=== PATIENT | female | born 1965 | race Caucasian/White ===

== ENCOUNTER → 2021-01-29 | Outpatient (CLI) | payer OTHER ==
--- NOTE | 2021-02-12 14:44 | SLEEP ---
[address] [address] SLEEP STUDY REPORT Name: DARSHAN ARMENDARIZ Room: [facility]#: [id number] Admission: 01/29/21 Attend Phys: Caleb Porter MD Discharge: Date of : 63 Report #: [id number] THIS REPORT FOR: cc: Marlo Lemon Herbert E. DO Pervez, Adeel MD ~ This study has been reviewed in its entirety by a board certified sleep specialist DATE OF SERVICE: 01/29/2021 SLEEP STUDY INDICATION FOR SLEEP STUDY: Hypersomnia/daytime sleepiness. INTERPRETATION: Total duration of the study is 463 minutes, out of which she was asleep for 276 minutes with an overall sleep efficiency decreased to 59.6%. Sleep onset was delayed occurring around 1-1/2 hours after lying down in bed. N1 sleep duration was 3.3%, N2 duration was 60%, N3 duration was 34%, and REM duration was 13%. We recorded 12 central apneas, 82 hypopneas in addition to 3 obstructive apneas, also recorded 74 respiratory effort related arousals. Overall, apnea-hypopnea index is markedly elevated to 21.1. Events are somewhat more common in REM sleep with a REM apnea-hypopnea index of 21.1. Body position data indicates the patient was observed asleep in the supine position for 168 minutes. Supine apnea-hypopnea index is higher at 26.9. On the left side, the patient's apnea-hypopnea index was 12.2. Mean heart rate was 59. Periodic limb movement index is elevated to 33.5. The periodic limb movement index with arousals being 15.4. Overall, arousal index is elevated to 64. We did record multiple desaturations. Overall, the patient spent 6.4 minutes below an O2 saturation of 90%, out of which 1.2 minutes were spent with an O2 saturation less than 88%. IMPRESSION: Central sleep apnea is observed with an apnea-hypopnea index of 21.1. A majority of the events that is more than 50% are of central origin. There is also mild nocturnal hypoxemia as described above and events are more common when the patient is lying supine. Periodic limb movement disorder is observed with a periodic limb movement index of 33.5. Periodic limb movement index with arousals of 15.4. RECOMMENDATIONS: 1. Recommend proceeding to a repeat sleep study [place] [address] SLEEP STUDY REPORT Name: DARSHAN ARMENDARIZ Room: [facility]#: [id number] Admission: 01/29/21 Attend Phys: Caleb Porter MD Discharge: Date of : 63 Report #: [id number] therapy is contraindicated as the patient has central sleep apnea. In case the patient is not adequately controlled with adequate BiPAP therapy, then in that case, I would consider a BiPAP AutoSV advanced. 2. Recommend weight loss. 3. Recommend avoiding driving or other activities requiring vigilance if drowsy. This entire sleep study was reviewed by board certified sleep physician. <ELECTRONICALLY SIGNED> By: Caleb Porter MD 02/12/21 1444 [id number] Porter MD /nt
== END ==
LOC: M.SLEEPLAB 20:00
PROVIDERS: ATTEND Internal Medicine Critical Care Medicine
DX: G47.33 Obstructive sleep apnea (adult) (pediatric) (principal); G47.10 Hypersomnia, unspecified

== ENCOUNTER → 2021-02-19 | Outpatient (CLI) | payer OTHER ==
--- NOTE | 2021-02-19 16:49 | 2DMMODE ---
[place] [address] 2 D/M-MODE ECHOCARDIOGRAM Name: DARSHAN ARMENDARIZ Room: [facility]#: [id number] Admission: 02/19/21 Attend Phys: Caleb Porter MD Discharge: Date of : 63 Date of Service: 02/19/21 1649 Report #: [id number] THIS REPORT FOR: cc: Marlo Lemon Herbert E. DO Liston, Michael J. MD [facility] ~ APPROVED REPORT Study performed: 02/19/2021 11:26:59 EXAM: Comprehensive 2D, Doppler, and color-flow Echocardiogram Patient Location: Out-Patient BSA: 1.76 HR: 64 bpm BP: 140/80 mmHg Other Information Study Quality: Good Indications Dyspnea 2D Dimensions IVSd: 9.90 (7-11mm) LVOT Diam: 20.02 (18-24mm) LVDd: 42.75 mm PWd: 9.38 (7-11mm) Ascending Ao: 28.03 (22-36mm) LVDs: 22.33 (25-40mm) Aortic Root: 27.20 mm Volumes Left Atrial Volume (Systole) LA ESV Index: 13.30 mL/m2 Aortic Valve AoV Peak Jin.: 1.49 m/s AO Peak Gr.: 8.89 mmHg LVOT Max P.67 mmHg AO Mean Gr.: 4.68 mmHg LVOT Mean P.76 mmHg LVOT Max V: 0.96 m/s AO V2 VTI: 27.01 cm LVOT Mean V: 0.61 m/s NÉSTOR (VTI): 2.36 cm2 LVOT V1 VTI: 20.27 cm Mitral Valve E/A Ratio: 1.10 [place] [address] 2 D/M-MODE ECHOCARDIOGRAM Name: DARSHAN ARMENDARIZ Room: [facility]#: [id number] Admission: 02/19/21 Attend Phys: Caleb Porter MD Discharge: Date of : 63 Date of Service: 02/19/21 1649 Report #: [id number] MV Decel. Time: 157.47 ms MV E Max Jin.: 0.73 m/s MV PHT: 45.67 ms MVA (PHT): 4.82 cm2 TDI E/Lateral E': 6.08 E/Medial E': 6.08 Medial E' Jin.: 0.12 m/s Lateral E' Jin.: 0.12 m/s Pulmonary Valve PV Peak Jin.: 1.77 m/s PV Peak Gr.: 12.48 mmHg Tricuspid Valve RAP Estimate: 5.00 mmHg TR Peak Gr.: 14.42 mmHg RVSP: 19.42 mmHg PA Pressure: 19.42 mmHg Left Ventricle The left ventricle is normal size. There is normal LV segmental wall motion. There is normal left ventricular wall thickness. Left ventricular systolic function is normal. LVEF is 55-60%. Grade I - abnormal relaxation pattern. Right Ventricle The right ventricle is normal size. The right ventricular systolic function is normal. Atria The left atrium size is normal. The right atrium size is normal. Aortic Valve The aortic valve is normal in structure. No aortic regurgitation is present. There is no aortic valvular stenosis. Mitral Valve The mitral valve is normal in structure. Trace mitral regurgitation. No evidence of mitral valve stenosis. Tricuspid Valve The tricuspid valve is normal in structure. Trace tricuspid regurgitation. Pulmonic Valve The pulmonary valve is normal in structure. [place] [address] 2 D/M-MODE ECHOCARDIOGRAM Name: DARSHAN ARMENDARIZ Room: [facility]#: [id number] Admission: 02/19/21 Attend Phys: Caleb Porter MD Discharge: Date of : 63 Date of Service: 02/19/21 1649 Report #: [id number] valvular regurgitation. Great Vessels The aortic root is normal in size. IVC is normal in size and collapses >50% with inspiration. Pericardium There is no pericardial effusion. <Conclusion> The left ventricle is normal size. There is normal left ventricular wall thickness. Left ventricular systolic function is normal. LVEF is 55-60%. Grade I - abnormal relaxation pattern. Trace mitral regurgitation. Trace tricuspid regurgitation. IVC is normal in size and collapses >50% with inspiration. <ELECTRONICALLY SIGNED> By: Donta You MD, FACC 02/19/21 1649 164 48 Donta You MD, FACC /INF
== END ==
LOC: M.CRD 11:00
PROVIDERS: ATTEND Internal Medicine Critical Care Medicine
DX: R06.02 Shortness of breath (principal); R06.00 Dyspnea, unspecified; Z88.8 Allergy status to other drugs, medicaments and biological substances

== ENCOUNTER → 2021-02-21 | Outpatient (CLI) | payer OTHER ==
--- NOTE | 2021-03-18 08:18 | SLEEP ---
[address] [address] SLEEP STUDY REPORT Name: DARSHAN ARMENDARIZ Room: [facility]#: [id number] Admission: 02/21/21 Attend Phys: Caleb Porter MD Discharge: Date of : 63 Report #: [id number] THIS REPORT FOR: cc: TATYANA ROOT MD, JESSE MD Pervez,Caleb KHAN ~ DOC #: [id number] Caleb Porter MD DATE OF STUDY: 02/21/2021 INDICATION FOR THIS SLEEP STUDY: Central sleep apnea. INTERPRETATION: Total duration of the study is 482 minutes out of which she was asleep for 324 minutes with an overall sleep efficiency decreased to 67%. Sleep onset initially occurred around 25 minutes of lying down in bed and REM onset was 199 minutes after sleep onset. N1 sleep duration was 9%, N2 duration was 57%, N3 duration was 20%, REM duration of 14%. Mean heart rate was 59. Periodic limb movement index was elevated to 31; however, most limb movements were not associated with arousals. Periodic limb movement index with arousals was 5.2. Overall, arousal index was elevated to 19.7 and there is sleep fragmentation observed. This is a BiPAP titration. The patient was titrated during the sleep study on BiPAP beginning with a BiPAP pressure of 8/4, gradually increasing it to 12/7. The patient continued to have multiple sleep related respiratory events, most of which were central apneas. Throughout the sleep study, the patient's apnea-hypopnea index remained markedly elevated and adequate control. The patient's central sleep apnea was not achieved with a regular BiPAP. The patient's O2 saturation, however, was mostly maintained at or above 88%. IMPRESSION: Central sleep apnea, not adequately controlled with regular BiPAP therapy. This is an indication for the use of BiPAP AutoSV Advanced. O2 saturation was maintained with a regular BiPAP. RECOMMENDATIONS: I recommend placing the patient on a BiPAP AutoSV Advanced with a max pressure of 25, pressure support range from 2 to 20. EPAP range from 4 to 10, rate auto with heated humidity and mask per patient preference while asleep. During this sleep study, a DreamWear mask with small cushion and medium frame was used. Recommend considering weight loss. Recommend avoiding driving or other activities requiring vigilance if drowsy. This entire sleep study was reviewed by board [place] [address] SLEEP STUDY REPORT Name: DARSHAN ARMENDARIZ Room: [facility]#: [id number] Admission: 02/21/21 Attend Phys: Caleb Porter MD Discharge: Date of : 63 Report #: [id number] MD YUMIKO Camarena/MIRANDA <ELECTRONICALLY SIGNED> By: Caleb Porter MD 03/18/21 0818 [id number] Porter MD /nt
== END ==
LOC: M.SLEEPLAB 19:59
PROVIDERS: ATTEND Internal Medicine Critical Care Medicine
DX: G47.31 Primary central sleep apnea (principal); G47.10 Hypersomnia, unspecified; Z88.8 Allergy status to other drugs, medicaments and biological substances